=== PATIENT | female | born 1995 | race Caucasian/White ===

== ENCOUNTER 2017-04-14 12:37 | Emergency (ER) | payer OTHER ==
[2017-04-14 13:06] VITALS: BP 101/62; PULSE 72; RESP 18; TEMP 98.1; O2SAT 100
[2017-04-14 14:24] LABS: BASO % 0.5 % (0.0-2.0); EOS % 0.3 % (0.0-4.0); HEMATOCRIT 39.4 % (34.0-47.0); LYMPH # 2.7 K/uL (1.0-4.3); LYMPH % 30.8 % (20.0-40.0); MEAN CELL VOLUME 76.2 fl (81.0-99.0); MEAN CORPUSCULAR HEMOGLOBIN 24.9 pg (27.0-31.0); MEAN CORPUSCULAR HGB CONC 32.6 g/dL (33.0-37.0); MEAN PLATELET VOLUME 10.2 fl (7.2-11.7); MONO # 0.7 K/uL (0.0-0.8); MONO % 7.7 % (0.0-10.0); NEUT # 5.3 K/uL (1.8-7.0); NEUT % 60.7 % (50.0-75.0); NRBC % 0.1 % (0.0-0.0); RED CELL DISTRIBUTION WIDTH 14.3 % (11.5-14.5); WHITE BLOOD COUNT 8.7 K/uL (4.8-10.8)
[2017-04-14 14:32] LABS: BLOOD UREA NITROGEN 8 mg/dl (7-17); CALCIUM 9.5 mg/dL (8.4-10.2); CARBON DIOXIDE 24 mmol/L (22-30); CHLORIDE 104 mmol/L (98-107); GFR AFRICAN-AMERICAN > 60; GLUCOSE,RANDOM 106 mg/dL (65-105); LIPASE 85 U/L (23-300); SODIUM 139 mmol/l (132-148)
[2017-04-14 14:55] LABS: POTASSIUM 4.7 MMOL/L (3.6-5.0)
--- NOTE | 2017-04-14 15:28 | ED PDOC ---
HPI: Abdomen Time Seen by Provider: 04/14/17 13:32 Chief Complaint (Nursing): Abdominal Pain Chief Complaint (Provider): Abdominal Pain History Per: Patient History/Exam Limitations: no limitations Onset/Duration Of Symptoms: Days (x5 months), Intermittent Episodes Current Symptoms Are (Timing): Still Present Additional Complaint(s): Amelie Meneses is a 21 year old female who presents to the emergency department with a complaint of umbilical abdominal pain that lasts 2-3 hours, ongoing on and off for 5 months. Denied fever, chills, vomiting, constipation, dysuria, hematuria or back pain. Patient stated that she was diagnosed with an abdominal hernia and advised to have repair done but wants to avoid surgery. She also reported taking Tylenol and Advil which provided some relief of symptoms. PMD: Steve Wynne MD Past Medical History Reviewed: Historical Data, Nursing Documentation, Vital Signs Vital Signs: Last Vital Signs Temp 98.1 F 04/14/17 13:03 Pulse 72 04/14/17 13:03 Resp 18 04/14/17 13:03 BP 101/62 04/14/17 13:03 Pulse Ox 100 04/14/17 16:13 - Medical History PMH: Asthma Denies: Chronic Kidney Disease - Family History Family History: States: Unknown Family Hx - Social History Current smoker - smoking cessation education provided: Yes Alcohol: Occasional Drugs: Denies - Immunization History Hx Tetanus Toxoid Vaccination: No Hx Influenza Vaccination: No Hx Pneumococcal Vaccination: No - Home Medications Home Medications: Ambulatory Orders Medication Instructions Recorded Albuterol HFA [Ventolin HFA 90 2 puff IH PRN PRN 01/27/17 mcg/actuation (8 g)] Naproxen 500 mg PO BID PRN #20 tab 01/28/17 Polyethylene Glycol 3350 [Miralax] 17 packet PO DAILY #15 packet 04/14/17 - Allergies Allergies/Adverse Reactions: Allergies Allergy/AdvReac Type Severity Reaction Status Date / Time No Known Allergies Allergy Verified 07/15/16 21:46 Review of Systems ROS Statement: Except As Marked, All Systems Reviewed And Found Negative Constitutional: Negative for: Fever, Chills Gastrointestinal: Positive for: Abdominal Pain (umbilical area intermittently). Negative for: Vomiting, Constipation Genitourinary Female: Negative for: Dysuria, Hematuria Musculoskeletal: Negative for: Back Pain Physical Exam - Reviewed Nursing Documentation Reviewed: Yes Vital Signs Reviewed: Yes - Physical Exam Appears: Positive for: Well, Non-toxic, No Acute Distress Head Exam: Positive for: ATRAUMATIC, NORMAL INSPECTION, NORMOCEPHALIC Neck: Positive for: Normal, Painless ROM, Supple Cardiovascular/Chest: Positive for: Regular Rate, Rhythm. Negative for: Chest Non Tender Respiratory: Positive for: Normal Breath Sounds. Negative for: Crackles, Rales , Rhonchi, Wheezing, Respiratory Distress Gastrointestinal/Abdominal: Positive for: Normal Exam, Bowel Sounds, Soft. 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 Provider Scribe Attestation: All medical record entries made by the Scribe were at my direction and personally dictated by me. I have reviewed the chart and agree that the record accurately reflects my personal performance of the history, physical exam, medical decision making, and the department course for this patient. I have also personally directed, reviewed, and agree with the discharge instructions and disposition. Disposition - Clinical Impression Clinical Impression: Abdominal discomfort, Constipation - Patient ED Disposition Is Patient to be Admitted: No Doctor Will See Patient In The: Office Counseled Patient/Family Regarding: Diagnosis, Need For Followup, Rx Given - Disposition Referrals: Steve Wynne MD [Family Provider] - Nevin Wynne MD [Medical Doctor] - [facility] [Outside] Disposition: Routine/Home Disposition Time: 16:12 Condition: STABLE Prescriptions: Polyethylene Glycol 3350 [Miralax] 17 packet PO DAILY #15 packet Instructions: Abdominal Pain (ED) Forms: [employer] (American) - POA Present On Arrival: None
--- NOTE | 2017-04-14 15:51 | US ---
HISTORY: Abdominal pain for 5 months COMPARISON: None. TECHNIQUE: Sonographic evaluation of the abdomen. FINDINGS: LIVER: Measures approximately 16.7 cm. Normal echogenicity of the liver parenchyma. No mass. No intrahepatic bile duct dilatation. GALLBLADDER: Gallbladder is physiologically distended. No evidence of intraluminal gallbladder calculi. No sonographic Elizalde sign reported by wood technologist COMMON BILE DUCT: Measures 3.3 mm. No stones. No dilatation. PANCREAS: Examination is somewhat limited due to partial obscuration of the distal on pancreatic tail however the remaining visualized pancreatic parenchyma unremarkable. No evidence of significant ductal dilatation. RIGHT KIDNEY: Measures approximately 11.5 x 4.8 x 4.6cm. Normal echogenicity. No calculus, mass, or hydronephrosis. LEFT KIDNEY: Measures approximately 11.2 x 6.0 x 5.4cm. Normal echogenicity. No calculus, system or mass. . Slight fullness - minimal hydronephrosis left renal collecting system SPLEEN: Normal in size and contour. No mass. AORTA: No aneurysmal dilatation. IVC: Unremarkable. OTHER FINDINGS: None. IMPRESSION: Mild fullness left renal collecting system ; findings suggest minimal hydronephrosis
--- NOTE | 2017-04-14 15:58 | RAD ---
PROCEDURE: Radiographs of the chest and abdomen (obstructive series) HISTORY: abd pain for at least 5 months, on/off COMPARISON: No prior. TECHNIQUE: AP radiograph of the chest, with upright and supine radiographs of the abdomen. FINDINGS: CHEST: Lungs: Clear. Cardiovascular: Normal size heart. No pulmonary vascular congestion. Pleura: No pleural fluid. No pneumothorax. Other findings: None. ABDOMEN AND PELVIS: Bowel: Moderate amount of stool seen throughout the ascending, transverse rectosigmoid colon suggesting mild fecal retention. No evidence of acute mechanical bowel obstruction. . Free air: No gross free air seen under the diaphragmatic surfaces. Bones: Unremarkable. Other findings: None. IMPRESSION: No acute cardiopulmonary disease. Findings consistent with mild fecal retention/constipation.
== END 2017-04-14 16:27 | disposition home or self-care (01) ==
LOC: H.ER 12:37
DX: K59.00 Constipation, unspecified (principal)
CPT/HCPCS: 74022; 76700; 80048; 81025; 83690; 85025; 96374; 99283; J1885